=== PATIENT | male | born 2000 | race Caucasian/White ===

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

== ENCOUNTER → 2018-02-12 | Day surgery (SDC) | payer MEDICARE ==
[~2018-02-12] MED LIST changes: +ANTACID325 MG PO; +CORRECTOL5 M1 PO; +DIPHENHIST50 MG PO; +HYDROCODONE-AP1 EAC6 PO; +LIDODERM1 EACH TOP; +MELATONIN5 M1 PO; +MILK OF MA2400 MG/10 PO; +NORCO 5-325 TA1 EACH PO; +PROTONIX40 M1 PO; +RENAGEL800 MG PO; +RENAPLEX-D TAB1 EACH PO; +TUMS PO; +TYLENOL325 MG PO; +ZOFRAN ODT4 MG DISSOLVE
[2018-02-12 07:42] LABS: CALCIUM 8.8 mg/dL (8.5-10.1); CREATININE 6.6 mg/dL (0.6-1.3); POTASSIUM 3.9 mmol/L (3.5-5.1)
--- NOTE | 2018-03-04 07:41 | OP ---
[facility] [address] [place] [address] OPERATIVE REPORT Name: CARLOS LUNA Room: [facility]#: [id number] Admission: 02/12/18 Attend Phys: Delio Ansari Discharge: Date of : 98 Report #: [id number] THIS REPORT FOR: //name// CC: Manuel Ansari DATE OF SERVICE: 02/12/2018 PREOPERATIVE DIAGNOSIS: End-stage renal disease. POSTOPERATIVE DIAGNOSIS: End-stage renal disease. PROCEDURE: 1. Laparoscopic placement of tunneled intraperitoneal catheter. 2. Laparoscopic omentopexy. SURGEON: Delio Ansari MD. ANESTHESIA: General. ESTIMATED BLOOD LOSS: Minimal. SPECIMENS: None. DESCRIPTION OF PROCEDURE: After informed consent was obtained, the patient was brought to the operating room and placed supine. SCDs were placed and working, preoperative antibiotics were administered, general anesthesia was induced. The abdomen was prepped and draped in the usual sterile fashion. A 5 mm incision was made in the left upper quadrant. A 5 mm trocar was placed under direct vision. Pneumoperitoneum was established. A left-sided 5 mm port was then placed. I placed an 8 mm port in the left rectus sheath. A catheter was placed through the 8 mm port. Catheter was then tunneled to the left upper quadrant of the abdomen. Omentopexy was performed by taking a suture passer and using a 2-0 Vicryl suture to tack the omentum up to the right upper quadrant. The catheter was then flushed with 750 mL heparinized saline. It drained very easily. The ports were then removed under direct vision. The skin was closed with 4-0 Monocryl. Incisions were sealed with Dermabond. COMPLICATIONS: [place] [address] OPERATIVE REPORT Name: CARLOS LUNA Room: [facility]#: [id number] Admission: 02/12/18 Attend Phys: Delio Ansari Discharge: Date of : 98 Report #: [id number] DISPOSITION: The patient was taken to recovery in satisfactory condition. <ELECTRONICALLY SIGNED> By: Delio Ansari MD 03/04/18 0741 0954 [id number] Ansari MD /nt
== END | disposition home or self-care (01) ==
LOC: M.SUR 07:14
PROVIDERS: Surgery
DX: Z49.02 Encounter for fitting and adjustment of peritoneal dialysis catheter (principal); N18.6 End stage renal disease; I10 Essential (primary) hypertension; E78.5 Hyperlipidemia, unspecified; D64.9 Anemia, unspecified; E66.9 Obesity, unspecified; F32.9 Major depressive disorder, single episode, unspecified; Z79.899 Other long term (current) drug therapy; Z98.890 Other specified postprocedural states

== ENCOUNTER 2018-04-21 15:27 | Emergency (ER) | payer MEDICARE, BC, MEDICAID ==
[~2018-04-21] VITALS: Ht 188 cm; Wt 120.2 kg
[2018-04-21 15:53] LABS: URINE BILIRUBIN NEGATIVE (Negative); URINE BLOOD 1+ (Negative); URINE CLARITY CLEAR; URINE COLOR YELLOW; URINE GLUCOSE-RANDOM NEGATIVE (Negative); URINE KETONES NEGATIVE (Negative); URINE LEUKOCYTES-REFLEX NEGATIVE (Negative); URINE NITRITE-REFLEX NEGATIVE (Negative); URINE PROTEIN 3+ (Negative); URINE SPECIFIC GRAVITY 1.025 (1.005-1.030); URINE UROBILINOGEN 0.2 E.U./dl (0.2-1.0)
[2018-04-21 15:57] LABS: ABSOLUTE BASOPHILS 0.2 thou/uL (0.0-0.2); ABSOLUTE EOSINOPHILS 0.2 thou/uL (0.0-0.7); ABSOLUTE LYMPHOCYTES 2.4 thou/uL (0.8-5.3); ABSOLUTE MONOCYTES 1.2 thou/uL (0.0-1.2); ABSOLUTE NEUTROPHILS 11.1 thou/uL (1.6-8.1); BASOPHILS 1.2 %; EOSINOPHILS 1.4 %; HEMATOCRIT 37.5 % (42.0-52.0); HEMOGLOBIN 12.8 gm/dL (14.0-18.0); MCH 29.6 pg (26.0-34.0); MCHC 34.2 g/dL (28.0-37.0); MCV 86.6 fL (80.0-100.0); MONOCYTES 7.7 %; MPV 8.9 fl. (7.2-11.1); NUCLEATED RBCS 0 /100WBC; PLATELET COUNT* 317 thou/uL (150-400); POLYS 73.7 %; RBC 4.33 mil/uL (4.50-6.00); RDW-CV 13.5 % (10.5-14.5); WBC 15.1 thou/uL (4.0-11.0)
[2018-04-21 16:02] LABS: SQUAMOUS 0-3 Few /LPF (0-3)
[2018-04-21 16:02] LABS: CALCIUM 9.5 mg/dL (8.5-10.1); CREATININE 6.6 mg/dL (0.6-1.3)
[2018-04-21 16:03] LABS: URINE WBC-REFLEX 0-5 Rare /HPF (0-5)
[2018-04-21 16:04] LABS: MUCUS None Seen strn/LPF (None Seen); URINE RBC 3-10 Few /HPF (0-2)
[2018-04-21 16:05] LABS: HYALINE CASTS 0-3 Few /LPF (None Seen)
[2018-04-21 16:06] LABS: FINE GRANULAR CASTS 0-3 Few /LPF (None Seen)
[2018-04-21 16:06] LABS: ALBUMIN 3.5 g/dL (3.4-5.0); TOTAL BILIRUBIN 0.6 mg/dL (<0.1-1.0)
[2018-04-21 16:07] LABS: COARSE GRANULAR CASTS 0-3 Few /LPF (None Seen)
[2018-04-21 16:09] LABS: POTASSIUM 2.6 mmol/L (3.5-5.1)
[2018-04-21 16:12] LABS: CRYSTALS None Seen /LPF (None Seen); WBC CASTS 0-3 /LPF
[2018-04-21] MEDS ORDERED: ZOFRAN ODT4 MG PO (16:25)
[2018-04-21 16:29] VITALS: BP 138/92
--- NOTE | 2018-04-22 13:41 | EKG ---
[place] [address] ELECTROCARDIOGRAM REPORT Name: CARLOS LUNA Room: [facility]#: [id number] Admission: 04/21/18 Attend Phys: Discharge: 04/21/18 Date of : 98 Report #: [id number] THIS REPORT FOR: //name// [facility] ED Test Date: 2018-04-21 Test Time: 16:27:51 Pat Name: CARLOS LUNA Department: Room: Gender: M Crane Assembler: JAYE : 2000 Requested By: Diego Soria Order Number: [id number] MD: Corby Meier Measurements Intervals Sabina Rate: 96 P: 47 [place]: 137 QRS: 34 QRSD: 104 T: -32 QT: 332 QTc: 420 Interpretive Statements Sinus rhythm Borderline Q waves in inferior leads Nonspecific repol abnormality, diffuse leads Compared to ECG 07/15/2017 13:25:53 Early repolarization now present T-wave abnormality no longer present ST (T wave) deviation no longer present Electronically Signed On 04-22-2018 13:41:24 MALWARE ANALYST by Corby Meier [email or web address] <ELECTRONICALLY SIGNED> By: Corby Meier MD, FACC 04/22/18 1341 1627 1627 Corby Meier MD, FAC /EPI
== END 2018-04-21 16:32 | disposition home or self-care (01) ==
LOC: M.ERS 15:27
PROVIDERS: Nurse Practitioner Family
DX: R11.2 Nausea with vomiting, unspecified (principal); F31.9 Bipolar disorder, unspecified; F90.9 Attention-deficit hyperactivity disorder, unspecified type; N18.6 End stage renal disease; Z99.2 Dependence on renal dialysis; Z77.22 Contact with and (suspected) exposure to environmental tobacco smoke (acute) (chronic)

== ENCOUNTER → 2018-06-11 | Day surgery (SDC) | payer MEDICARE, BC, MEDICAID ==
[~2018-06-11] MED LIST changes: +GENTAMICIN 0.1%15 G2 TOP; +OMEPRAZOLE 20 M20 M1 PO; +RENVELA800 MG PO; +SENSIPAR 30 MG30 M1 PO; +ZOFRAN ODT4 MG PO
--- NOTE | ~2018-06-11 | OP ---
[address] [address] OPERATIVE REPORT Name: CARLOS LUNA Room: [facility]#: [id number] Admission: 06/11/18 Attend Phys: Flako Dave DO Discharge: Date of : 98 Report #: [id number] THIS REPORT FOR: //name// CC: Flako COWART physician/PCP Radha Bar MD DICTATED BY: Catalino Dutta DO DATE OF SERVICE: 06/11/2018 PREOPERATIVE DIAGNOSIS: Symptomatic cholelithiasis. POSTOPERATIVE DIAGNOSES: Chronic cholecystitis with cholelithiasis and cholesterolosis. SURGEON: Flako Dave DO. COSURGEON: Catalino Dutta DO, PGY2. DRINK BOX MECHANIC: Patrick Michele MS3. OPERATION PERFORMED: Laparoscopic cholecystectomy. ANESTHESIA TYPE: General and local. ESTIMATED BLOOD LOSS: 20 mL. SPECIMENS REMOVED: Gallbladder. COMPLICATIONS: None. INDICATIONS FOR PROCEDURE: The patient is a pleasant 18-year-old male who presented to the office with chief complaint of nausea, vomiting, diarrhea with intolerance to fatty foods. The patient was found to have cholelithiasis on abdominal ultrasound. The patient has a peritoneal dialysis catheter for IgA nephropathy and a history of acute renal failure. The patient was seen and evaluated by his campaign management specialist and cleared to proceed with laparoscopic cholecystectomy. Full discussion of procedure, alternatives, risks and possible complications to include but not limited to bleeding, infection, postoperative pain, scarring, hernia, need to conversion to an open procedure, injury to other abdominal organs including stomach, liver, bowel, bile ducts, biloma, bile leak and anesthesia risks. The patient was understanding of these risks and agreed to proceed to the operating room. OPERATIVE REPORT AND TECHNIQUE: The patient was [place] [address] OPERATIVE REPORT Name: CARLOS LUNA Room: [facility].#: [id number] Admission: 06/11/18 Attend Phys: Flako Dave DO Discharge: Date of : 98 Report #: [id number] preoperative holding area. Fully informed written consent was obtained. Again, full discussion of procedure, alternatives, risks and possible complications. The patient again voiced understanding of these risks and agreed to proceed to the operating room. The patient was given 2 grams Ancef preoperative antibiotics. The patient was subsequently transported to the operating room suite and placed on the operating table in supine position. At this time, Anesthesia induced general anesthesia, was successful. Foot board was placed at the feet, bilateral lower extremity SCDs were placed to lower extremity calves. Grounding pad was placed around the lateral thigh. All the patient's extremities and joints were padded and protected. The patient was prepped and draped using standard sterile fashion. Time-out was performed prior to the onset of procedure. We began by making a vertical midline incision just superior to the umbilicus, using open Santoyo technique dissected down to the level of the fascia. Once the fascia was reached, fascia was scored and grasped with bilateral Kochers, elevated and transected using electrocautery. Next, a hemostat was used to zhang the peritoneum. Two 0 Vicryl [id number] interrupted sutures were placed at the apices of the fascial incision. A 5 mm trocar was placed into the abdomen. Insufflation was achieved first using low flow then high flow. A 5 mm 0-degree laparoscopic camera was placed into the abdomen. There was noted to be no injury to abdominal organs on entry into the abdomen. Surveillance of the right upper quadrant revealed no abdominal wall adhesions. The peritoneal dialysis catheter was in proper placement in the pelvis. The patient was placed in reverse Trendelenburg, left side down. An additional 5 mm trocar was placed in the epigastric region. Two additional 5 mm trocars were placed in the right upper quadrant. Locking wavy grasper was used to grasp the gallbladder. This was then elevated anteriorly and cephalad, exposing the Karol pouch as well as easily identified the cystic duct, a long cystic duct transversing down to the common bile duct. Using electrocautery and Maryland dissector, the cystic duct was easily isolated, circumferentially dissected around. The cystic artery was noted to be just posterior to the cystic duct. This was also dissected out using Maryland dissector. Critical view of safety was obtained. Hem-o-mary anne clips were brought into the field. Cystic duct was clipped twice distally, once proximally. Cystic artery was clipped both once distally and once proximally. Laparoscopic scissors were used to transect the cystic duct and cystic artery. Electrocautery was then used to dissect the gallbladder from the gallbladder fossa and the liver bed. Hemostasis was achieved throughout dissection of the gallbladder from the liver bed. We reexamined our clips, there was noted to be no bile leak or hemorrhaging from clip beds. Intraoperative pictures were obtained. Next, a 5 mm EndoCatch bag was placed through the umbilical trocar and the gallbladder was placed in the EndoCatch bag. There was a small hole in the gallbladder during this time of dissection off from the liver bed. A suction genetics physician had been brought on to the field. Bile was evacuated and right upper quadrant was irrigated with 1 liter of normal saline. Next, abdomen was desufflated under direct visualization. The 5 mm right upper quadrant epigastric trocars were removed. Once the abdomen was fully desufflated under direct visualization, a [address] [address] OPERATIVE REPORT Name: CARLOS LUNAX Room: [facility]#: [id number] Admission: 06/11/18 Attend Phys: Falko Dave DO Discharge: Date of : 98 Report #: [id number] camera was removed. Nasir trocar taken and removed from the abdomen and gallbladder removed through the umbilical incision through the EndoCatch bag. Next, two additional 0 Vicryl [id number]-is-fubnl sutures were placed to close the fascial incision. Umbilical incision was then closed in a layered fashion using 3-0 Vicryl interrupted sutures and 4-0 running Monocryl. The 5 mm laparoscopic incision sites were closed using 4-0 interrupted Monocryl. The abdomen was cleansed using wet and dry lap. Sterile dressing was applied, Mastisol, Steri-Strips, Tegaderms, 4 x 4s, Medipore tape. The patient was extubated in the OR, transferred back to the PACU in stable condition after a brief recovery from anesthesia. PLAN: Discharge home. Follow up in the office with Dr. Dave in 1 week. By: [id number] Dave DO /nt
[2018-06-11 08:08] LABS: HEMATOCRIT 33.1 % (42.0-52.0); HEMOGLOBIN 11.1 gm/dL (14.0-18.0); MCH 29.1 pg (26.0-34.0); MCHC 33.5 g/dL (28.0-37.0); MCV 86.7 fL (80.0-100.0); MPV 8.4 fl. (7.2-11.1); RBC 3.82 mil/uL (4.50-6.00); RDW-CV 13.6 % (10.5-14.5); WBC 12.2 thou/uL (4.0-11.0)
[2018-06-11 08:17] LABS: CALCIUM 8.5 mg/dL (8.5-10.1); CREATININE 5.1 mg/dL (0.6-1.3); POTASSIUM 3.4 mmol/L (3.5-5.1)
[2018-06-11 08:22] LABS: ALBUMIN 2.7 g/dL (3.4-5.0); TOTAL BILIRUBIN 0.4 mg/dL (<0.1-1.0); TOTAL PROTEIN 7.2 g/dL (6.4-8.2)
== END | disposition home or self-care (01) ==
LOC: M.SUR 07:05
PROVIDERS: Surgery
DX: K80.10 Calculus of gallbladder with chronic cholecystitis without obstruction (principal); I12.9 Hypertensive chronic kidney disease with stage 1 through stage 4 chronic kidney disease, or unspecified chronic kidney disease; N18.6 End stage renal disease; Z87.19 Personal history of other diseases of the digestive system; Z79.899 Other long term (current) drug therapy; Z79.891 Long term (current) use of opiate analgesic; Z98.890 Other specified postprocedural states

== ENCOUNTER → 2019-09-30 | Day surgery (SDC) | payer MEDICARE, MEDICAID ==
[~2019-09-30] MED LIST changes: +NORCO 5-325 TA1 EAC1 PO; +ROCALTROL0.25 MCG PO
[2019-09-30 06:41] LABS: HEMATOCRIT 33.6 % (42.0-52.0); HEMOGLOBIN 11.3 gm/dL (14.0-18.0); MCH 30.8 pg (26.0-34.0); MCHC 33.7 g/dL (28.0-37.0); MCV 91.6 fL (80.0-100.0); RBC 3.67 mil/uL (4.50-6.00); RDW-CV 14.2 % (10.5-14.5); WBC 18.9 thou/uL (4.0-11.0)
[2019-09-30 06:49] LABS: CALCIUM 9.2 mg/dL (8.5-10.1); CREATININE 6.7 mg/dL (0.6-1.3); POTASSIUM 3.7 mmol/L (3.5-5.1)
--- NOTE | 2019-09-30 11:48 | OP ---
[facility] [address] [place] [address] OPERATIVE REPORT Name: CARLOS LUNAX Room: [facility]#: [id number] Admission: 09/30/19 Attend Phys: Delio Ansari Discharge: Date of : 89 Report #: [id number] THIS REPORT FOR: //name// cc: SUPA Ochoa family physician/PCP SUPA Ochoa family physician/PCP ~ THIS REPORT FOR: //name// CC: SUPA physician/PCP Delio Ansari DATE OF SERVICE: 09/30/2019 PREOPERATIVE DIAGNOSIS: End-stage renal disease. POSTOPERATIVE DIAGNOSIS: End-stage renal disease. OPERATION: Removal of tunneled intraperitoneal catheter. SURGEON: Delio Ansari MD ANESTHESIA: General. ESTIMATED BLOOD LOSS: Minimal. SPECIMEN: None. DESCRIPTION OF PROCEDURE: After informed consent was obtained, the patient was brought to the operating room and placed supine. SCDs were placed and working, preoperative antibiotics were administered, general anesthesia was induced. The abdomen was prepped and draped in the usual sterile fashion. A 1-cm elliptical incision was made around the exit site. Cautery dissection was made down through the subcutaneous tissue. I was able to access both the internal and external cuff from this incision. The cuffs were freed up with cautery. The catheter slid out easily. The small hole in the fascia was closed with a spuyjd-nx-tejsl 0 Vicryl. The skin was then closed with 4-0 Monocryl. Incisions were sealed with Dermabond. COMPLICATIONS: None. DISPOSITION: The patient was taken to recovery in satisfactory condition. <ELECTRONICALLY SIGNED> By: Delio Ansari MD 09/30/19 [id number] [id number] Ansari MD /nt
--- NOTE | 2019-09-30 13:31 | EKG ---
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
== END | disposition home or self-care (01) ==
LOC: M.SUR 06:03
PROVIDERS: Surgery
DX: I12.0 Hypertensive chronic kidney disease with stage 5 chronic kidney disease or end stage renal disease (principal); N18.6 End stage renal disease; F31.9 Bipolar disorder, unspecified; Z98.890 Other specified postprocedural states; Z79.899 Other long term (current) drug therapy

== ENCOUNTER 2019-12-03 15:56 | Emergency (ER) | payer MEDICARE, MEDICAID ==
[~2019-12-03] VITALS: Ht 172.7 cm; Wt 97.5 kg
[2019-12-03] MEDS ORDERED: ANXIETY (16:05)
[2019-12-03 16:43] VITALS: BP 136/88
== END 2019-12-03 16:44 | disposition home or self-care (01) ==
LOC: M.ERS 15:56
DX: R19.7 Diarrhea, unspecified (principal); N18.6 End stage renal disease; Z99.2 Dependence on renal dialysis; Z77.22 Contact with and (suspected) exposure to environmental tobacco smoke (acute) (chronic)